=== PATIENT | female | born 1965 | race Caucasian/White ===

== ENCOUNTER 2020-12-28 11:08 | Emergency (ER) | payer OTHER ==
[2020-12-28 11:13] VITALS: BP 129/62; PULSE 68; TEMP 98; BMI 29.0
[2020-12-28] MEDS ORDERED: KETOROLAC TROMETHAMINE 30 MG/1 ML VIAL IM ONE (11:53)
[2020-12-28] MEDS ORDERED: KETOROLAC TROMETHAMINE 30 MG/1 ML VIAL ONE (12:04)
== END 2020-12-28 13:11 | disposition home or self-care (01) ==
LOC: JERFT 11:08
PROC: 2W3CX1Z Immobilization of Right Lower Arm using Splint (ICD-10-PCS; principal; 2020-12-28)
PROC: 3E0233Z Introduction of Anti-inflammatory into Muscle, Percutaneous Approach (ICD-10-PCS; 2020-12-28)
DX: S62.102A Fracture of unspecified carpal bone, left wrist, initial encounter for closed fracture (principal)
CPT/HCPCS: 73110-TC-LT-FY; 73130-TC-LT-FY; 99285-25

== ENCOUNTER 2023-05-17 22:35 | Observation (INO) | payer OTHER ==
[2023-05-17 22:48] VITALS: BMI 27.4
[2023-05-18] MEDS ORDERED: LACTATED RINGERS SOLUTION 1000 ML INFUS.BAG IV ONE (00:44)
[2023-05-18] MEDS ORDERED: MECLIZINE HCL 12.5 MG TABLET PO ONE (00:51)
[2023-05-18] MEDS ORDERED: ACETAMINOPHEN 325 MG TABLET (FP) PO ONE (00:51)
[2023-05-18] MEDS ORDERED: METOCLOPRAMIDE HCL INJECTION 10 MG/2 ML VIAL IVPUSH ONE (00:51)
[2023-05-18] MEDS ORDERED: ACETAMINOPHEN 325 MG TABLET (FP) ONE (01:46)
[2023-05-18] MEDS ORDERED: METOCLOPRAMIDE HCL INJECTION 10 MG/2 ML VIAL ONE (01:46)
[2023-05-18] MEDS ORDERED: MECLIZINE HCL 12.5 MG TABLET ONE (01:46)
[2023-05-18 02:23] LABS: EOS % 3.6 % (0-4.5); HEMATOCRIT 41.3 % (32.4-45.2); HEMOGLOBIN 14.2 GM/dL (10.7-15.3); MCH 29.8 pg (25.7-33.7); MCHC 34.4 g/dl (32.0-36.0); MEAN CELL VOLUME 86.5 fl (80-96); MEAN PLT VOLUME 7.9 fl (7.5-11.1); MONO % 7.3 % (3.8-10.2); NEUT % 49.1 % (42.8-82.8); PLATELET COUNT 344 10^3/uL (134-434); RBC 4.77 M/mm3 (3.60-5.2); RDW 12.7 % (11.6-15.6); WHITE BLOOD COUNT 8.6 K/mm3 (4.0-10.0)
[2023-05-18 02:30] LABS: INR 1.06 (0.83-1.09); PROTHROMBIN TIME (PATIENT) 12.3 SEC (9.7-13.0)
[2023-05-18 02:42] LABS: POTASSIUM 4.1 mmol/L (3.5-5.1)
[2023-05-18 02:44] LABS: ALBUMIN 3.9 g/dl (3.4-5.0); CALCIUM 9.5 mg/dL (8.5-10.1)
[2023-05-18 02:45] LABS: BLOOD UREA NITROGEN 13.2 mg/dL (7-18); MAGNESIUM 2.3 mg/dL (1.8-2.4)
[2023-05-18 02:47] LABS: CREATININE 0.7 mg/dL (0.55-1.3)
[2023-05-18 02:49] LABS: BILIRUBIN,TOTAL 0.2 mg/dL (0.2-1); TOT PROT 7.4 g/dl (6.4-8.2)
[2023-05-18 03:45] LABS: EPI CELLS 9 /uL (0-25.1); HYALINE CASTS 0 /uL (0-3.1); PH,URINE 5.5 (5.0-8.0); URINE APPEARANCE CLEAR; URINE BACTERIA 248 /uL (0-1359); URINE BILIRUBIN NEGATIVE (NEGATIVE); URINE COLOR YELLOW; URINE GLUCOSE (UA) NEGATIVE (NEGATIVE); URINE KETONE NEGATIVE (NEGATIVE); URINE LEUK ESTERASE TRACE (NEGATIVE); URINE NITRITE NEGATIVE (NEGATIVE); URINE PROTEIN NEGATIVE (NEGATIVE); URINE RBC 13 /uL (0-23.9); URINE UROBILINOGEN 0.2 mg/dL (0.2-1.0); URINE WBC 13 /uL (0-25.8)
[2023-05-18] MEDS: ENOXAPARIN NA (PORCINE) 40 MG/0.4 ML DISP.SYRIN SQ SCH (09:30)
[2023-05-18] MEDS ORDERED: PATIENT'S OWN MEDICATION (NON-FORMULARY) (Terbinafine Hcl [Terbinafine Hcl] 250 MG Tablet) PO SCH (10:00)
[2023-05-18 10:25] LABS: CHOLESTEROL 167 mg/dL (50-200)
[2023-05-18 10:27] LABS: LDL CHOLESTEROL (ONLY SJRH) 90 mg/dL (5-100)
[2023-05-18 10:28] LABS: HDL CHOLESTEROL 49 mg/dL (40-60)
[2023-05-18] MEDS ORDERED: CEFTRIAXONE 1 GM in DEXTROSE 5%-WATER - 50 ML IVPB ONE (10:30)
[2023-05-18] MEDS: SODIUM CHLORIDE 1,000 ML IV SCH (11:06)
[2023-05-18] MEDS: MECLIZINE HCL 12.5 MG TABLET PO SCH ×2 (15:40→21:08)
[2023-05-18] MEDS: ATORVASTATIN CA 40 MG TABLET (FP) PO SCH (21:07)
[2023-05-19] MEDS: MECLIZINE HCL 12.5 MG TABLET PO SCH ×3 (06:31→21:12)
[2023-05-19 08:08] LABS: BASO % 0.8 % (0-2.0); EOS % 4.2 % (0-4.5); HEMATOCRIT 42.5 % (32.4-45.2); HEMOGLOBIN 14.1 GM/dL (10.7-15.3); LYMPH % 31.3 % (8-40); MCH 29.3 pg (25.7-33.7); MCHC 33.3 g/dl (32.0-36.0); MONO % 6.3 % (3.8-10.2); NEUT % 57.4 % (42.8-82.8); PLATELET COUNT 354 10^3/uL (134-434); RBC 4.82 M/mm3 (3.60-5.2); RDW 12.9 % (11.6-15.6); WHITE BLOOD COUNT 6.9 K/mm3 (4.0-10.0)
[2023-05-19 08:22] LABS: POTASSIUM 4.4 mmol/L (3.5-5.1)
[2023-05-19 08:26] LABS: ALBUMIN 3.5 g/dl (3.4-5.0); BLOOD UREA NITROGEN 12.3 mg/dL (7-18); CALCIUM 9.2 mg/dL (8.5-10.1); MAGNESIUM 2.1 mg/dL (1.8-2.4)
[2023-05-19 08:29] LABS: CREATININE 0.6 mg/dL (0.55-1.3)
[2023-05-19 08:31] LABS: BILIRUBIN,TOTAL 0.2 mg/dL (0.2-1); TOT PROT 6.8 g/dl (6.4-8.2)
[2023-05-19] MEDS: ENOXAPARIN NA (PORCINE) 40 MG/0.4 ML DISP.SYRIN SQ SCH (09:55)
[2023-05-19] MEDS: SODIUM CHLORIDE 1,000 ML IV SCH (14:08)
[2023-05-19] MEDS: ATORVASTATIN CA 40 MG TABLET (FP) PO SCH (21:11)
[2023-05-20] MEDS: SODIUM CHLORIDE 1,000 ML IV SCH (06:06)
[2023-05-20] MEDS: MECLIZINE HCL 12.5 MG TABLET PO SCH (06:06)
[2023-05-20 08:34] VITALS: PULSE 58; RESP 16; TEMP 98
[2023-05-20 09:03] VITALS: BP 135/73
[2023-05-20] MEDS: ENOXAPARIN NA (PORCINE) 40 MG/0.4 ML DISP.SYRIN SQ SCH (09:54)
== END 2023-05-20 12:21 | disposition home or self-care (01) ==
LOC: JER 22:35 → JERBED 05-18 05:42 → J4S 05-18 07:54
PROVIDERS: ADMIT Internal Medicine; ATTEND Nurse Practitioner Family
PROC: 3E03329 Introduction of Other Anti-infective into Peripheral Vein, Percutaneous Approach (ICD-10-PCS; principal; 2023-05-18)
PROC: 3E023GC Introduction of Other Therapeutic Substance into Muscle, Percutaneous Approach (ICD-10-PCS; 2023-05-18)
PROC: 3E0337Z Introduction of Electrolytic and Water Balance Substance into Peripheral Vein, Percutaneous Approach (ICD-10-PCS; 2023-05-18)
PROC: 3E033GC Introduction of Other Therapeutic Substance into Peripheral Vein, Percutaneous Approach (ICD-10-PCS; 2023-05-18)
DX: N39.0 Urinary tract infection, site not specified (principal); B35.1 Tinea unguium; Z29.8 Encounter for other specified prophylactic measures; Z91.013 Allergy to seafood; R55 Syncope and collapse; Z29.9 Encounter for prophylactic measures, unspecified
CPT/HCPCS: 36415; 70450-TC; 71046-TC-FY; 80053; 80061; 81003; 82962; 83036; 83690; 83735; 84443; 84484; 85025; 85610; 87086; 93005; 93010; 93306-TC; 93880-TC; 96361; 96365; 96372; 96375; 97116-GP; 97161-GP; 99285-25; G0378

== ENCOUNTER 2024-07-29 09:54 | Emergency (ER) | payer OTHER ==
[2024-07-29 10:03] VITALS: BP 133/78; PULSE 98; RESP 18; TEMP 99.1; BMI 27.4
[2024-07-29] MEDS ORDERED: ACETAMINOPHEN 500 MG TABLET (FP) ONE (10:41)
[2024-07-29] MEDS: ACETAMINOPHEN 500 MG TABLET (FP) PO ONE (10:45)
[2024-07-29 10:49] LABS: EPI CELLS 11 /uL (0-25.1); HYALINE CASTS 0 /uL (0-3.1); PH,URINE 7.5 (5.0-8.0); URINE APPEARANCE TURBID; URINE BILIRUBIN 1+ (NEGATIVE); URINE COLOR RED; URINE GLUCOSE (UA) NEGATIVE (NEGATIVE); URINE KETONE NEGATIVE (NEGATIVE); URINE LEUK ESTERASE 3+ (NEGATIVE); URINE NITRITE POSITIVE (NEGATIVE); URINE PROTEIN 3+ (NEGATIVE); URINE UROBILINOGEN 0.2 mg/dL (0.2-1.0); URINE WBC 2376 /uL (0-25.8)
[2024-07-29 11:42] LABS: URINE BACTERIA 40 /uL (0-1359); URINE RBC 5869 /uL (0-23.9); YEAST NONE SEEN (NEGATIVE)
== END 2024-07-29 11:23 | disposition home or self-care (01) ==
LOC: JER 09:54 → JERFT 09:54
DX: R31.9 Hematuria, unspecified (principal); R30.0 Dysuria; R10.30 Lower abdominal pain, unspecified; N39.0 Urinary tract infection, site not specified
CPT/HCPCS: 81003; 87086; 87186; 99283-25